=== PATIENT | female | born 1960 | race Two or more races ===

== ENCOUNTER 2018-03-28 18:55 | Emergency (ER) | payer MEDICAID ==
[~2018-03-28] VITALS: Ht 157.5 cm; Wt 63.5 kg
[~2018-03-28 18:55] MED LIST: ATARAX25 MG ORAL; HYDROXYZINE HCL25 M1 PO; NKM; UNOBMED
[2018-03-28] MEDS ORDERED: ROBAXIN500 MG PO (19:10)
[2018-03-28] MEDS ORDERED: IBUPROFEN600 MG ORAL (19:10)
[2018-03-28] MEDS ORDERED: LIDOCAINE700 M1 TP (19:10)
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
[2018-03-28 19:13] VITALS: BP_SYST 188; BP_SYST 191; BP_DIAS 100; BP_DIAS 102
[2018-03-28] MEDS ORDERED: Methocarbamol 500mg tab ORAL ONE (19:15)
[2018-03-28] MEDS ORDERED: Ketorolac 30mg Inj IM ONE (19:15)
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
[2018-03-28 20:20] VITALS: BP 188/102
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
== END 2018-03-28 20:20 | disposition home or self-care (01) ==
LOC: EDBD 18:55 → EMR 19:13
DX: I10 Essential (primary) hypertension (principal); M54.2 Cervicalgia; V43.62XA Car passenger injured in collision with other type car in traffic accident, initial encounter; Y92.410 Unspecified street and highway as the place of occurrence of the external cause
CPT/HCPCS: 96372; 99283; J1885